=== PATIENT | male | born 2000 | race Caucasian/White ===

== ENCOUNTER 2020-07-06 20:19 | Emergency (ER) | payer BC ==
[~2020-07-06] VITALS: Ht 170.2 cm; Wt 75.0 kg
[2020-07-06] MEDS ORDERED: SODIUM CHLORIDE FLUSH 10ML SYR IVF ONE (20:30)
[2020-07-06 20:57] LABS: BASOPHILS % (AUTO) 1 % (0-1); EOSINOPHILS % (AUTO) 0 % (1-7); LYMPHOCYTES % (AUTO) 20 % (22-44); MEAN CORPUSCULAR HEMOGLOBIN 34.6 pg (27.5-34.5); MEAN CORPUSCULAR HGB CONC 35.1 g/dL (33.2-36.2); MEAN PLATELET VOLUME 8.2 fL (7.4-10.4); MONOCYTES % (AUTO) 8 % (2-9); NEUTROPHILS % (AUTO) 71 % (42-75); PLATELET COUNT 242 x10^3/uL (130-400); RED BLOOD COUNT 4.92 x10^6/uL (4.38-5.82); RED CELL DISTRIBUTION WIDTH 13.2 % (9.4-14.8)
[2020-07-06 21:06] LABS: MD NO
[2020-07-06 21:09] LABS: ALANINE AMINOTRANSFERASE 33 U/L (12-78); ALBUMIN 4.9 g/dL (3.4-5.0); ANION GAP 6 mmol/L (5-15); CALCIUM 9.7 mg/dL (8.5-10.1); CHLORIDE 108 mmol/L (98-107); CREATININE 1.15 mg/dL (0.7-1.3)
[2020-07-06 21:13] LABS: ALKALINE PHOSPHATASE 101 U/L (45-117); BILIRUBIN,TOTAL 1.3 mg/dL (0.2-1.0); TOTAL PROTEIN 8.7 g/dL (6.4-8.2); TROPONIN I < 0.015 ng/mL (0.000-0.045)
--- NOTE | 2020-07-06 22:50 | NUR ---
PATIENT STANDING AT BEDSIDE, HEART RATE INCREASED TO 156/MIN. PATIENT DENIES CP, SHOB, DIZZINESS. SAT BACK DOWN IN BED AND HEART RATE RETURNED TO MID 80'S.
--- NOTE | 2020-07-07 00:09 | NUR ---
PATIENT REQUESTING WATER, DENIED NEED TO TOILET, VSS, NAD, CALL [facility] WITHIN REACH, WILL CONTINUE TO MONITOR.
[2020-07-07 00:30] LABS: TROPONIN I < 0.015 ng/mL (0.000-0.045)
[2020-07-07 01:04] VITALS: BP 118/64
== END 2020-07-07 01:07 | disposition home or self-care (01) ==
LOC: ED 21:16
DX: R00.2 Palpitations (principal); R07.9 Chest pain, unspecified; F41.9 Anxiety disorder, unspecified; R00.0 Tachycardia, unspecified; F10.10 Alcohol abuse, uncomplicated
CPT/HCPCS: 36415; 71045; 80053; 84484; 85025; 93005; 99285